=== PATIENT | female | born 2000 | race Caucasian/White ===

== ENCOUNTER 2022-07-28 17:40 | Outpatient (CLI) | payer OTHER, SELFPAY ==
[2022-07-28 17:55] VITALS: BP 118/81; PULSE 106
[2022-07-28 18:01] VITALS: BP 127/84; PULSE 110
[2022-07-28 18:16] VITALS: BP 121/78; PULSE 118
[2022-07-28 18:21] LABS: Basophils Percent Auto 0.2 % (0.2-1.2); Eosinophils Absolute Auto 0.1 K/mm3 (0-0.3); Eosinophils Percent Auto 0.6 % (0-4.4); Hematocrit 32.8 % (37.0-47.0); Hemoglobin 10.9 g/dL (12.0-15.0); Immature Granulocyte Absolute 0.06 K/mm3 (0.00-0.031); Immature Granulocyte Percent A 0.5 % (0-0.5); Lymphocytes Absolute Auto 1.58 K/mm3 (0.9-3.2); Lymphocytes Percent Auto 12.6 % (18.3-44.2); Mean Corpuscular HGB Conc 33.2 g/dl (32-36); Mean Corpuscular Hemoglobin 29.5 pg (26-34); Mean Corpuscular Volume 88.9 fl (80-100); Mean Platelet Volume 10.1 fl (7.4-10.4); Monocytes Absolute Auto 0.8 K/mm3 (0.1-0.6); Monocytes Percent Auto 6.7 % (2.6-8.5); Neutrophils Percent Auto 79.4 % (45.5-73.1); Platelet Count Result 288 k/mm3 (150-375); Red Blood Count 3.69 M/mm3 (4.2-5.4); White Blood Count 12.5 K/mm3 (4.5-10.0)
[2022-07-28 18:31] VITALS: BP 128/71; PULSE 105
[2022-07-28 18:35] LABS: Alanine Aminotransferase 20 U/L (6-35); Albumin Level 3.7 g/dL (3.5-5.1); Alkaline Phosphatase 233 U/L (38-126); Anion Gap 8 mmol/L (8-16); Aspartate Amino Transferase 23 U/L (14-36); Bilirubin,Total 0.3 mg/dL (0.2-1.3); Blood Urea Nitrogen 10 mg/dL (7-17); Calcium 8.7 mg/dL (8.4-10.2); Carbon Dioxide 19 mmol/L (22-30); Chloride 104 mmol/L (98-107); Estimated Glomerular Filt Rate > 60; Glucose 109 mg/dL (65-110); Potassium 3.4 mmol/L (3.4-5.0); Sodium 131 mmol/L (137-145); Uric Acid 4.4 mg/dL (2.5-7.5)
--- NOTE | 2022-07-28 19:10 | PC.NURSE ---
Dr. Augustine Cho called in to check on patient status. Reviewed admission assessment, vs, and lab reports. May discharge home with instructions to return to his office this , 07/31/22, for BP check.
[2022-07-28 19:19] LABS: Appearance Urine Clear (Clear); Bilirubin Urine Negative (Negative); Blood Urine Negative (Negative); Color Urine Yellow (Yellow); Glucose Urine UA Negative (Negative); Ketones Urine Negative (Negative); Leukocyte Esterase Ur Negative LEU/UL (NEGATIVE); Nitrate Urine Negative (Negative); Protein Urine 1+ mg/dL (Negative); Specific Grav Ur >= 1.030 (1.001-1.035); Urobilinogen Urine 0.2 mg/dL (<2.0)
[2022-07-28 19:23] LABS: Bacteria Urine Trace /hpf; Mucus Urine Rare /lpf; Squamous Epithelial Cell Urine Occasional /hpf (Few)
[2022-07-28 19:27] LABS: Add Urine Microscopic? YES
[2022-07-28 19:40] LABS: Creatinine Urine 195.6 mg/dL; Total Protein Urine Random 16 mg/dL; Ur Ttl Prot Creatinine Ratio 0.08 mg/mg (0-0.20)
[2022-07-28 20:13] VITALS: BP 128/71; PULSE 105
== END 2022-07-28 19:30 | disposition home or self-care (01) ==
LOC: ANHOBOP 17:46 → ANHLDR 17:47
PROVIDERS: PCP Pediatrics; Visit Provider Obstetrics & Gynecology
DX: O13.9 Gestational [pregnancy-induced] hypertension without significant proteinuria, unspecified trimester (principal); Z3A.00 Weeks of gestation of pregnancy not specified
CPT/HCPCS: 36415; 59025; 80053; 81001; 82570; 84156; 84550; 85025; 87086; 99199

== ENCOUNTER 2022-08-04 05:57 | Inpatient (IN) | payer OTHER, SELFPAY ==
[2022-08-04] VITALS (167 sets, daily range): BP systolic 76–148; BP diastolic 49–100; PULSE 63–161; TEMP 36.6–36.7; O2SAT 78–100; BMI 29.9
--- NOTE | 2022-08-04 06:49 | LDADM ---
This patient, Sydnie Ortiz, was admitted to Labor/Delivery/Recovery 104 on 08/04/22 at 05:57. Plans for labor, pain management and were discussed with patient. Patient/family oriented to hospital policies and general routines including ID bracelet, bed and alarms, visiting hours, pain management, procedures, bathroom and other care routines, personal items, smoking policy, room service/diet and guest tray routines, security routines, and visiting hours. Patient/Family are encouraged to report perceived risks to care and to ask questions if they do not understand what they are told or what they should do. See OBIX for further documentation.
[2022-08-04 07:08] LABS: Basophils Percent Auto 0.2 % (0.2-1.2); Eosinophils Absolute Auto 0.2 K/mm3 (0-0.3); Eosinophils Percent Auto 1.8 % (0-4.4); Hematocrit 30.5 % (37.0-47.0); Immature Granulocyte Absolute 0.08 K/mm3 (0.00-0.031); Immature Granulocyte Percent A 0.7 % (0-0.5); Lymphocytes Absolute Auto 2.22 K/mm3 (0.9-3.2); Lymphocytes Percent Auto 20.1 % (18.3-44.2); Mean Corpuscular HGB Conc 32.8 g/dl (32-36); Mean Corpuscular Hemoglobin 28.4 pg (26-34); Mean Corpuscular Volume 86.6 fl (80-100); Mean Platelet Volume 9.8 fl (7.4-10.4); Monocytes Absolute Auto 0.9 K/mm3 (0.1-0.6); Monocytes Percent Auto 8.2 % (2.6-8.5); Neutrophils Absolute Auto 7.6 K/mm3 (1.3-6.7); Platelet Count Result 230 k/mm3 (150-375); Red Blood Count 3.52 M/mm3 (4.2-5.4); Red Cell Distribution Width 13.2 % (11.5-14.5)
--- NOTE | 2022-08-04 07:50 | PM.IMHP ---
H&P: HPI History of Present Illness Date/Time: 08/04/22 07:50 Chief Complaint: mildly elevated blood pressure at term Narrative: this is a 22-year-old 1 para 0 whose last menstrual period was 11/04/2021, EDC is 08/11/2022, presents at 39 weeks gestation for induction of labor. Her blood pressures have been elevated the last couple visits. She is spilling 1+ protein. Her PIH labs were negative. She is negative for group B strep PMFSH Family History Family History Other Patient denies significant medical history Social History Social History Smoking status: Current some day smoker Tobacco type: cigarettes Second hand tobacco smoke exposure: No Substance use: never Other substance usage details: smokes daily for nausea Last use: 08/01/2022 Lack of Transportation: No Lack of Food: Never True Current Housing: I Have Housing Concerned About Future Housing: No Difficulty Paying Gas/Electric Bills: No Difficulty Paying for Meds: No Currently Unemployed: YES Education: Grade School Difficulty w/ Childcare or Family Care: No Spiritual care concerns: No Meds Home Medications and Allergies Home Medications Medication Instructions Recorded Confirmed Type prenat.vits,tere,uuo-hmbq-bzubr 1 tablet PO DAILY 08/01/22 08/01/22 History Allergies Allergy/AdvReac Type Severity Reaction Status Date / Time No Known Allergies Allergy Unverified 02/24/18 09:11 Vital Signs Vital Signs - 24 hr 08/04/22 06:59 08/04/22 07:01 08/04/22 07:31 Pulse Rate 91 109 H 106 H Blood Pressure 132/88 136/99 H 134/88 Oxygen Delivery 08/04/22 06:47 Pulse Rate Blood Pressure Oxygen Delivery Room Air Exam Const: General: cooperative, healthy appearing, comfortable and well groomed Nutritional Appearance: average body habitus Orientation/consciousness: oriented to person, oriented to place and oriented to time HENMT: Head: normal to inspection Resp: Effort & Inspection: normal respiratory effort Cardio: Rate: regular rate Rhythm: regular rhythm Heart sounds: S1 normal heart sound present and S2 normal heart sound present GI: Inspection: normal to inspection : External Female Exam: normal external appearance Speculum Exam - Vagina: normal appearance of the vagina Speculum Exam - Cervix: normal appearance of the cervix ( /1. AROM clear. FHTs reassuring) Amniotic Fluid: clear H&P: Results Labs Labs: Short CBC 08/04/22 Range/Units 06:18 WBC 11.0 H (4.5-10.0) K/mm3 Hgb 10.0 L (12.0-15.0) g/dL Hct 30.5 L (37.0-47.0) % Plt Count 230 (150-375) k/mm3 Assessment and Plan Assessment and plan (1) Term : Code(s): Z34.90 - Encounter for supervision of normal , unspecified, unspecified trimester Status: Acute (2) Gestational hypertension: Code(s): O13.9 - Gestational [-induced] hypertension without significant proteinuria, unspecified trimester Status: Acute Plan medical induction of labor. Spontaneous vaginal delivery is expected. She is an epidural candidate. PIH labs were drawn under normal
[2022-08-04 10:12] LABS: Rapid Plasma Reagin Non-Reactive (NonReactive)
--- NOTE | 2022-08-04 11:25 | PM.OBPNLAB ---
Pain Control Date/time seen: 08/04/22 11:25 Pain control: tolerating well Pelvic Exam Dilation (cm): 4 Effacement (%): 100 station: -1 Amniotic membrane status: Leaking Contractions Monitor mode: Internal
[2022-08-04] MEDS: LACTATED RINGERS 1,000 ML 125 ML IV CONT ×2 (12:00→15:50)
--- NOTE | 2022-08-04 13:39 | WPDANESEPP ---
Anes - Eval Pre Procedure Procedure: Labor Epidural Date/Time: 08/04/22 13:39 Surgeon: Augustine Cho Preop Diagnosis: Labor Pain Pre Op Diagnosis: Induction of Labor Patient Data Age: 22 Gender: F Height: 1.55 m Weight: 72 kg Last Vital Signs Temp 36.6 C 08/04/22 13:09 Pulse 86 08/04/22 13:37 BP 126/66 08/04/22 13:37 Pulse Ox 98 08/04/22 13:37 O2 Del Method Room Air 08/04/22 06:47 Allergies Allergy/AdvReac Type Severity Reaction Status Date / Time No Known Allergies Allergy Unverified 02/24/18 09:11 Home Medications Medication Instructions Recorded Confirmed Type prenat.vits,tere,uae-fuem-pvqxe 1 tablet PO DAILY 08/01/22 08/01/22 History Laboratory Tests 08/04/22 08/04/22 08/04/22 06:18 06:18 06:18 WBC 11.0 K/mm3 H K/mm3 (4.5-10.0) RBC 3.52 M/mm3 L M/mm3 (4.2-5.4) Hgb 10.0 g/dL L g/dL (12.0-15.0) Hct 30.5 % L % (37.0-47.0) MCV 86.6 fl fl (80-100) MCH 28.4 pg pg (26-34) MCHC 32.8 g/dl g/dl (32-36) RDW 13.2 % % (11.5-14.5) Plt Count 230 k/mm3 k/mm3 (150-375) MPV 9.8 fl fl (7.4-10.4) Immature Gran % (Auto) 0.7 % H % (0-0.5) Neut % (Auto) 69.0 % % (45.5-73.1) Lymph % (Auto) 20.1 % % (18.3-44.2) [place] % (Auto) 8.2 % % (2.6-8.5) Eos % (Auto) 1.8 % % (0-4.4) Baso % (Auto) 0.2 % % (0.2-1.2) Lymph # (Auto) 2.22 K/mm3 K/mm3 (0.9-3.2) [place] # (Auto) 0.9 K/mm3 H K/mm3 (0.1-0.6) Eos # (Auto) 0.2 K/mm3 K/mm3 (0-0.3) Baso # (Auto) 0.0 K/mm3 K/mm3 (0.0-0.1) Abs Immat Gran (auto) 0.08 K/mm3 H K/mm3 (0.00-0.031) Absolute Neuts (auto) 7.6 K/mm3 H K/mm3 (1.3-6.7) Absolute Nucleated RBC 0.0 K/mm3 K/mm3 (0.0-0.012) Nucleated RBC % 0.0 % % (0.0-0.2) RPR Non-reactive (NonReactive) Blood Type B Positive Antibody Screen Negative : gestational age (RENAY 08/11/22, ) Patient hx anesthesia problems: none Family hx anesthesia problems: none Results Review: All pre-operative results and documents have been reviewed as part of the pre-operative evaluation. [facility] Family History Family History Other Patient denies significant medical history Social History Social History Smoking status: Current some day smoker Tobacco type: cigarettes Second hand tobacco smoke exposure: No Substance use: never Other substance usage details: smokes daily for nausea Last use: 08/01/2022 Lack of Transportation: No Lack of Food: Never True Current Housing: I Have Housing Concerned About Future Housing: No Difficulty Paying Gas/Electric Bills: No Difficulty Paying for Meds: No Currently Unemployed: YES Education: Grade School Difficulty w/ Childcare or Family Care: No Spiritual care concerns: No Exam Day of Procedure 08/04/22 13:39 Patient weight: normal Heart: regular rate and rhythm Lungs: normal air movement Airway: Mallampati scale class II Neurological: alert and oriented
[2022-08-04] MEDS: ONDANSETRON INJ 4 MG/2 ML VIAL IV PUSH (15:43)
--- NOTE | 2022-08-04 17:51 | PM.OBPNLAB ---
Pain Control Date/time seen: 08/04/22 17:51 Pain control: tolerating well and epidural Pelvic Exam Dilation (cm): 7 Effacement (%): 80 station: -2 Amniotic membrane status: Leaking Contractions Monitor mode: Internal
--- NOTE | 2022-08-04 22:22 | PM.OBPRVD ---
OB - Delivery Note Procedure Delivery date: 08/04/22 Events: Elective Induction of Labor and Gestational Hypertension Induction method: AROM Delivery augmentation: Pitocin Delivery monitor: External FHT and Internal Uterine Route of delivery: Episiotomy description: None Laceration Description: None Quantitative Blood Loss (ml): 60 Anesthesia type: Epidural Disposition: Floor Baby Date of : 08/04/22 Weeks of gestation at delivery: 40 presentation: vertex position: Right Occiput Anterior Placenta delivery description: Spontaneous Cord Vessel Description: 3 Vessels, Nuchal Cord, Loose, Reduced and Delayed Cord Clamping score one minute: 9 score five minutes: 9
[2022-08-04] MEDS: OXYTOCIN 30 UNITS/NS 500 ML 30 UNITS/500 ML BAG 125 UNITS IV CONT (22:44)
[2022-08-05] VITALS (12 sets, daily range): BP systolic 108–126; BP diastolic 70–82; PULSE 83–105; RESP 16–18; TEMP 36.6–36.9; O2SAT 96–99
--- NOTE | 2022-08-05 00:33 | OBPPTRN ---
Patient transferred to post room #284 via W/C. Support person present. Oriented to unit, room, information board, rooming in, admission packet and security measures. Patient verbalizes understanding.
[2022-08-05 05:03] LABS: Hematocrit 31.1 % (37.0-47.0); Hemoglobin 10.4 g/dL (12.0-15.0)
--- NOTE | 2022-08-05 07:28 | WPDANLDPN2 ---
Anes-Prog Note L&D Date/Time: 08/05/22 07:28 Comfortable throughout: labor and delivery Neuraxial method: epidural Epidural/Spinal procedure site: clean & non-tender Neuro status: Neuro function grossly intact. Cardiovascular status: normal Respiratory status: normal Airway patency: baseline Mental status: baseline Post-Op hydration status: normal Vital Signs: Last Vital Signs Temp 36.7 C 08/05/22 04:30 Pulse 98 08/05/22 04:30 Resp 16 08/05/22 04:30 BP 112/77 08/05/22 04:30 Pulse Ox 97 08/05/22 00:16 O2 Del Method Room Air 08/05/22 00:40 Pain score (VAS): 07/08 I/O: Intake & Output 08/04/22 08/04/22 08/05/22 15:59 23:59 07:59 Intake Total 1000 550 Output Total 60 813 Balance 1000 -60 -263 Post-procedural complaints: none Patient feedback: Patient satisfied with anesthetic care.
--- NOTE | 2022-08-05 07:40 | PM.DS ---
DS: Admitting Diagnosis Discharge Date 08/06/22 Admitting Diagnosis Term /gestational hypertension DS: Discharge Diagnosis Discharge Diagnosis (1) Gestational hypertension: Code(s): O13.9 - Gestational [-induced] hypertension without significant proteinuria, unspecified trimester Status: Acute (2) Term : Code(s): Z34.90 - Encounter for supervision of normal , unspecified, unspecified trimester Status: Acute DS: Summary Hospital Course Reason for hospitalization: patient was admitted for induction of labor at 39 weeks gestation secondary to mildly elevated blood pressures Hospital Course: the patient underwent successful spontaneous vaginal delivery male infant. Her hospital course unremarkable. She remained afebrile. She was up, eating regular diet, breast-feeding, ambulating, voiding without difficulty, and generally without complaints. Time Spent with Patient Time attestation: Total time spent providing and/or coordinating discharge services: Exam Const: General: cooperative, healthy appearing and comfortable Nutritional Appearance: average body habitus Orientation/consciousness: oriented to person, oriented to place and oriented to time HENMT: Head: normal to inspection Resp: Effort & Inspection: normal respiratory effort GI: Inspection: normal to inspection ( Fundus firm below the umbilicus) DS: Data Data Completed and Pending Labs on day of discharge: Labs from last 24 hours 08/05/22 08/04/22 08/04/22 04:24 06:18 06:18 Hgb 10.4 L Hct 31.1 L RPR Non-reactive Blood Type B Positive Antibody Screen Negative Discharge Plan Discharge Attending physician on discharge: Freddy Lazo Discharging Clinician: Freddy Lazo Patient Disposition: Home, Self-Care Activity: may shower and pelvic rest Diet: heart healthy Wound Care Instructions: follow printed instructions Patient Instructions: Antibiotic Form Stand Alone Forms: General Discharge Information Follow-up/Referrals: Freddy Lazo MD [Physician] - Discharge Medications: Continued #2 Tablet 1 tablet PO DAILY Date of admission: 08/04/22 05:57 Primary Care Provider: UNKNOWN,DOCTOR Admitting Provider: Freddy Lazo Attending physician on admission: Freddy Lazo Condition: Stable
--- NOTE | 2022-08-05 07:42 | PM.OBPNVD ---
OB - PN: Subj Subjective Date/time seen: 08/05/22 07:42 Patient comments: no complaints and pain well controlled baby status: doing well and nursing well OB - PN: Obj Data Labs 08/05/22 04:24 Labs: Laboratory Results - last 24 hr 08/04/22 08/04/22 08/05/22 06:18 06:18 04:24 Hgb 10.4 L Hct 31.1 L RPR Non-reactive Blood Type B Positive Antibody Screen Negative OB - PN A/P Plan day: 1 Plan: routine care Time Spent With Patient Time: Total time spent is greater than 50% in coordination of care (as documented) at patient's floor/unit and/or counseling patient: Time with patient: less than 15 minutes Exam Const: General: cooperative, healthy appearing, comfortable and well groomed Nutritional Appearance: average body habitus Orientation/consciousness: oriented to person, oriented to place and oriented to time Resp: Effort & Inspection: normal respiratory effort GI: Inspection: normal to inspection ( fundus firm below the umbilicus)
[2022-08-05] MEDS: DOCUSATE SODIUM 100 MG CAPSULE PO ×2 (08:18→16:54)
[2022-08-05] MEDS: MULTIVIT/MIN/PREN/FOL AC/IRON TABLET 1 TAB PO (08:18)
--- NOTE | 2022-08-05 14:46 | PC.NURSE ---
[phone] Introductions were made, then consulted with patient to assess needs related to . Mother led the conversation with her?plans to feed?her infant and the?experience so far. Resources provided for inpatient services with name on the white board and using the call light. Mother voiced understanding of information and requested assistance since she had attempted a few times and infant is sleepy. Mother works well with her with encouragement and education. Encouraged understanding of the benefits of skin to skin (demonstrating unwrapping infant and placing upright on her chest), stimulating with massage touch, changing positions to encourage wakefulness, how to watch for early feeding cues, responsive feeding, feeding on demand (aiming for 8-12 times in 24 hours, about every 2-3 hours), milk production, building/maintaining a milk supply, duration of feeding, signs of adequate intake/output and how to record on the feeding sheet. Reviewed positioning and ear, shoulder, hip alignment, supporting the breast to facilitate a deep latch, asymmetrical latch (off-center), leading with the chin with a big, open, wide gape and body close to mother. latched optimally to the right breast in cross cradle position. Education given to mother of how to visualize suck/swallow ratios and listen for drinking at the breast. was able to maintain latch without discomfort to mother. Nipple care reviewed with optimal latch and good positioning. Reminding mother of comfort measures of healing with a warm and wet washcloth to rinse breast, then leave open to air-dry as needed. Reviewed good handwashing when or touching the breast/nipples to prevent infection. Infant stopped swallowing after 10 minutes and fell asleep despite mother stimulating for effectively . was placed skin to skin upright on mother's chest and she demonstrated understanding of using changing positions, massage touch, talking, burping and stimulating for wakefulness. Once feeding cues were observed infant was positioned with cross cradle to the left breast and latched effectively with mother denying pain. Infant had a good suck/swallow ratio and rocking motion. Resources used to facilitate learning were used with the tool. Mother voiced understanding of skin to skin, stimulating with massage touch, responsive feedings, hand expressed colostrum, talking to infant to encourage if it has been 2 -2.5 hours since the start of the last , to call if does not latch, or if there is discomfort with . Resources provided for inpatient assistance with using the call light and asking for assistance with the name on the white board. Mother voiced understanding of information, demonstrated learning and will call if there is a request for assistance. Reported to the primary RN.
[2022-08-06 04:50] VITALS: BP 114/72; PULSE 88
--- NOTE | 2022-08-06 07:41 | PM.OBPNVD ---
OB - PN: Subj Subjective Date/time seen: 08/06/22 07:41 Patient comments: no complaints and pain well controlled baby status: doing well and nursing well OB - PN: Obj Data Labs 08/05/22 04:24 OB - PN A/P Plan day: 2 Plan: routine care, discharge home and follow up 6 weeks Time Spent With Patient Time: Total time spent is greater than 50% in coordination of care (as documented) at patient's floor/unit and/or counseling patient: Time with patient: less than 15 minutes Exam Const: General: cooperative, healthy appearing and comfortable Nutritional Appearance: average body habitus Orientation/consciousness: oriented to person, oriented to place and oriented to time HENMT: Head: normal to inspection Resp: Effort & Inspection: normal respiratory effort Cardio: Rate: regular rate Rhythm: regular rhythm Heart sounds: S1 normal heart sound present and S2 normal heart sound present GI: Inspection: normal to inspection
--- NOTE | 2022-08-06 08:00 | PC.NURSE ---
Patient viewed the discharge video Mother & Baby Care, The First Two Weeks . Patient was given the opportunity and encouraged to ask questions. Patient verbalized understanding of information shared and has been given the mother/baby guide for home reference.
[2022-08-06] MEDS: DOCUSATE SODIUM 100 MG CAPSULE PO (08:06)
[2022-08-06] MEDS: MULTIVIT/MIN/PREN/FOL AC/IRON TABLET 1 TAB PO (08:06)
[2022-08-06] MEDS: TETANUS,DIPHTHERIA,AC PERTUSSIS ADULT (0.5 ML) BOOSTRIX IM (08:06)
[2022-08-06 08:15] VITALS: BP 123/73; PULSE 84; RESP 16; TEMP 36.9; O2SAT 100
[2022-08-07 10:25] VITALS: BP 128/87; PULSE 93; RESP 20; TEMP 37.4; O2SAT 99
== END 2022-08-06 11:00 | disposition home or self-care (01) | DRG 560 ==
LOC: ANHLDR 06:05 → ANHOB2 08-05 00:47
PROVIDERS: Admitting Provider Obstetrics & Gynecology; Visit Provider Obstetrics & Gynecology
DX: O13.4 Gestational [pregnancy-induced] hypertension without significant proteinuria, complicating childbirth (principal); F17.210 Nicotine dependence, cigarettes, uncomplicated; O99.334 Smoking (tobacco) complicating childbirth; O69.81X0 Labor and delivery complicated by cord around neck, without compression, not applicable or unspecified; O76 Abnormality in fetal heart rate and rhythm complicating labor and delivery; Z3A.39 39 weeks gestation of pregnancy; Z37.0 Single live birth
CPT/HCPCS: 36415; 85014; 85018; 85025; 86592; 86850; 86900; 86901; 90715; A9270; J2405; J2590; J2795; J7120

== ENCOUNTER 2024-01-27 06:32 | Inpatient (IN) | payer OTHER, SELFPAY ==
[2024-01-27] VITALS (113 sets, daily range): BP systolic 79–176; BP diastolic 36–139; PULSE 61–180; RESP 16–20; TEMP 36.4–37; O2SAT 91–100; BMI 27.6
--- NOTE | 2024-01-27 06:47 | P.HP_ITS ---
H&P: HPI History of Present Illness Date/Time: 01/27/24 06:47 Chief Complaint: Term Narrative: 23-year-old 2 para 1 at39+ weeks gestation for induction of labor. Cervix is favorable in her has been uncomplicated. [facility] Family History Family History Other Patient denies significant medical history Social History Social History Smoking status: Current some day smoker Tobacco type: cigarettes Second hand tobacco smoke exposure: No Substance use: never Other substance usage details: smokes daily for nausea Last use: 08/01/2022 Lack of Transportation: No Lack of Food: Never True Current Housing: I Have Housing Concerned About Future Housing: No Difficulty Paying Gas/Electric Bills: No Difficulty Paying for Meds: No Currently Unemployed: YES Education: Grade School Difficulty w/ Childcare or Family Care: No Spiritual care concerns: No Meds Home Medications and Allergies Home Medications Medication Instructions Recorded Confirmed Type prenat.vits,tere,fmy-ixgc-iknaa 1 tablet PO DAILY 08/01/22 08/01/22 History Allergies Allergy/AdvReac Type Severity Reaction Status Date / Time No Known Allergies Allergy Unverified 02/24/18 09:11 Exam Const: General: cooperative, healthy appearing and comfortable Nutritional Appearance: average body habitus Orientation/consciousness: oriented to person, oriented to place and oriented to time Resp: Effort & Inspection: normal respiratory effort Cardio: Rate: regular rate Rhythm: regular rhythm Heart sounds: S1 normal heart sound present and S2 normal heart sound present GI: Inspection: normal to inspection (Gravid soft uterus) : External Female Exam: normal external appearance Speculum Exam - Vagina: normal appearance of the vagina Speculum Exam - Cervix: Other cervical findings present ( heart tones are reassuring) Assessment and Plan Assessment and plan (1) Term : Code(s): Z34.90 - Encounter for supervision of normal , unspecified, unspecified trimester Status: Acute Assessment and Plan: Medical induction of labor. Spontaneous vaginal delivery is expected. She has an epidural candidate
[2024-01-27 07:19] LABS: Basophils Percent Auto 0.1 % (0.2-1.2); Eosinophils Absolute Auto 0.1 K/mm3 (0-0.3); Eosinophils Percent Auto 1.4 % (0-4.4); Hematocrit 31.4 % (37.0-47.0); Hemoglobin 10.4 g/dL (12.0-15.0); Immature Granulocyte Absolute 0.03 K/mm3 (0.00-0.031); Immature Granulocyte Percent A 0.4 % (0-0.5); Lymphocytes Absolute Auto 1.63 K/mm3 (0.9-3.2); Lymphocytes Percent Auto 23.3 % (18.3-44.2); Mean Corpuscular HGB Conc 33.1 g/dl (32-36); Mean Corpuscular Hemoglobin 29.2 pg (26-34); Mean Corpuscular Volume 88.2 fl (80-100); Mean Platelet Volume 9.9 fl (7.4-10.4); Monocytes Absolute Auto 0.7 K/mm3 (0.1-0.6); Monocytes Percent Auto 9.7 % (2.6-8.5); Neutrophils Absolute Auto 4.6 K/mm3 (1.3-6.7); Neutrophils Percent Auto 65.1 % (45.5-73.1); Platelet Count Result 244 k/mm3 (150-375); Red Blood Count 3.56 M/mm3 (4.2-5.4)
[2024-01-27] MEDS: LACTATED RINGERS 1,000 ML 125 ML IV CONT ×2 (07:47→10:52)
[2024-01-27] MEDS: OXYTOCIN 30 UNITS/NS 500 ML 30 UNITS/500 ML BAG IV CONT (07:48)
[2024-01-27 07:55] LABS: Rapid Plasma Reagin Non-Reactive (NonReactive)
[2024-01-27 08:11] LABS: HIV 1/2 Ab P24 Ag Result Negative (Negative)
--- NOTE | 2024-01-27 10:36 | WPDANESEPP ---
Anes - Eval Pre Procedure Procedure: Labor epidural Date/Time: 01/27/24 10:36 Surgeon: Augustine Cho Preop Diagnosis: Pain during labor Pre Op Diagnosis: IOL Patient Data Age: 23 Gender: F Height: 1.55 m Weight: 66.5 kg Last Vital Signs Temp 36.8 C 01/27/24 08:58 Pulse 84 01/27/24 10:30 Resp 16 01/27/24 08:58 BP 131/90 01/27/24 10:30 O2 Del Method Room Air 01/27/24 08:00 Allergies Allergy/AdvReac Type Severity Reaction Status Date / Time No Known Allergies Allergy Verified 01/27/24 07:20 Home Medications Medication Instructions Recorded Confirmed Type prenat.vits,tere,gtv-uqiz-vwsln 1 tablet PO DAILY 08/01/22 01/27/24 History omeprazole 20 mg tablet,delayed 20 mg PO DAILY 01/27/24 01/27/24 History release Laboratory Tests 01/27/24 07:01 WBC 7.0 K/mm3 (4.5-10.0) RBC 3.56 L M/mm3 (4.2-5.4) Hgb 10.4 L g/dL (12.0-15.0) Hct 31.4 L % (37.0-47.0) MCV 88.2 fl (80-100) MCH 29.2 pg (26-34) MCHC 33.1 g/dl (32-36) RDW 14.0 % (11.5-14.5) Plt Count 244 k/mm3 (150-375) MPV 9.9 fl (7.4-10.4) Immature Gran % (Auto) 0.4 % (0-0.5) Neut % (Auto) 65.1 % (45.5-73.1) Lymph % (Auto) 23.3 % (18.3-44.2) [place] % (Auto) 9.7 H % (2.6-8.5) Eos % (Auto) 1.4 % (0-4.4) Baso % (Auto) 0.1 L % (0.2-1.2) Lymph # (Auto) 1.63 K/mm3 (0.9-3.2) [place] # (Auto) 0.7 H K/mm3 (0.1-0.6) Eos # (Auto) 0.1 K/mm3 (0-0.3) Baso # (Auto) 0.0 K/mm3 (0.0-0.1) Abs Immat Gran (auto) 0.03 K/mm3 (0.00-0.031) Absolute Neuts (auto) 4.6 K/mm3 (1.3-6.7) Absolute Nucleated RBC 0.000 K/mm3 (0.0-0.012) Nucleated RBC % 0.0 % (0.0-0.2) RPR Non-reactive (NonReactive) HIV 1&2 Ab/P24 Ag 4thGn Negative (Negative) Blood Type B Positive Antibody Screen Negative Patient hx anesthesia problems: none Family hx anesthesia problems: none Results Review: All pre-operative results and documents have been reviewed as part of the pre-operative evaluation. [facility] Family History Family History Other Patient denies significant medical history Social History Social History Years smoked: 2 Smoking status: Former smoker Tobacco type: cigarettes Second hand tobacco smoke exposure: Yes Substance use: current Other substance usage details: smokes daily for nausea Last use: 01/23/24 Do You Feel Safe in your Home?: Yes Lack of Transportation: No Lack of Food: Never True Current Housing: I Have Housing Concerned About Future Housing: No Difficulty Paying Gas/Electric Bills: No Difficulty Paying for Meds: No Currently Unemployed: No Education: Grade School Difficulty w/ Childcare or Family Care: No Spiritual care concerns: No Exam Day of Procedure 01/27/24 10:36 Patient weight: overweight Heart: regular rate and rhythm Lungs: clear to auscultation Airway: Mallampati scale Neurological: alert and oriented
--- NOTE | 2024-01-27 11:43 | PM.OBPNLAB ---
Pain Control Date/time seen: 01/27/24 11:43 Pain control: tolerating well and epidural Pelvic Exam Dilation (cm): 5 Effacement (%): 90 station: -1 Amniotic membrane status: Leaking
--- NOTE | 2024-01-27 11:50 | PM.OBPNLAB ---
Pain Control Date/time seen: 01/27/24 11:50 Pain control: tolerating well and epidural Pelvic Exam Dilation (cm): 10 Effacement (%): 100 station: 0 Amniotic membrane status: Leaking
--- NOTE | 2024-01-27 12:24 | PM.OBPRVD ---
OB - Vaginal Delivery Note Procedure Delivery date: 01/27/24 Events: Elective Induction of Labor Induction method: AROM Delivery monitor: External FHT and External Uterine Route of delivery: Episiotomy description: None Laceration Description: None Specimen: No Quantitative Blood Loss (ml): 61 Anesthesia type: Epidural Disposition: Floor Complications: No immediate complications Narrative: Patient was admitted for induction of labor early a.m. 01/27/2024. Artificial rupture membranes performed. She received remarkable for stage of labor had epidural anesthesia. She was complete she pushed delivered head spontaneously in the FABIOLA position. Anterior posterior shoulder delivered spontaneously. Cord clamped to cut and passed off the table the next cry. Placenta spontaneously. Twenty visualized units of Pitocin placed IV to help firm the uterus. Blood loss estimated 5cc after delivery of placenta. All sponge, needle, instrument counts were correct. There were no immediate complications Baby Date of : 01/27/24 Time of : 12:16 Gestational Age by Date: 39 gender: Male presentation: vertex position: Left Occiput Anterior Placenta delivery description: Spontaneous Cord Vessel Description: 3 Vessels score one minute: 9 score five minutes: 9
--- NOTE | 2024-01-27 12:26 | PM.DS ---
DS: Admitting Diagnosis Discharge Date 01/28/24 Admitting Diagnosis term DS: Discharge Diagnosis Discharge Diagnosis (1) Term : Code(s): Z34.90 - Encounter for supervision of normal , unspecified, unspecified trimester Status: Acute DS: Summary Hospital Course Reason for hospitalization: patient was admitted for induction of labor at 39 and half weeks gestation on 01/27/2024. She underwent spontaneous vaginal delivery Hospital Course: patient's hospital course unremarkable. She remained afebrile. She was up, voiding without difficulty go bleeding read diet, ambulating, and generally without complaints. Time Spent with Patient Time attestation: Total time spent providing and/or coordinating discharge services: Exam Const: General: cooperative, healthy appearing and comfortable Nutritional Appearance: average body habitus Orientation/consciousness: oriented to person, oriented to place and oriented to time HENMT: Head: normal to inspection Resp: Effort & Inspection: normal respiratory effort Cardio: Rate: regular rate Rhythm: regular rhythm Heart sounds: S1 normal heart sound present and S2 normal heart sound present GI: Inspection: normal to inspection ( Fundus firm below the umbilicus) DS: Data Data Completed and Pending Labs on day of discharge: Labs from last 24 hours 01/27/24 07:01 WBC 7.0 RBC 3.56 L Hgb 10.4 L Hct 31.4 L MCV 88.2 MCH 29.2 MCHC 33.1 RDW 14.0 Plt Count 244 MPV 9.9 Immature Gran % (Auto) 0.4 Neut % (Auto) 65.1 Lymph % (Auto) 23.3 [place] % (Auto) 9.7 H Eos % (Auto) 1.4 Baso % (Auto) 0.1 L Lymph # (Auto) 1.63 [place] # (Auto) 0.7 H Eos # (Auto) 0.1 Baso # (Auto) 0.0 Abs Immat Gran (auto) 0.03 Absolute Neuts (auto) 4.6 Absolute Nucleated RBC 0.000 Nucleated RBC % 0.0 RPR Non-reactive HIV 1&2 Ab/P24 Ag 4thGn Negative Blood Type B Positive Antibody Screen Negative Discharge Plan Discharge Attending physician on discharge: Freddy Lazo Discharging Clinician: Freddy Lazo Patient Disposition: Home, Self-Care Activity: may shower and pelvic rest Diet: heart healthy Wound Care Instructions: follow printed instructions Patient Instructions: Antibiotic Form Stand Alone Forms: General Discharge Information Follow-up/Referrals: Freddy Lazo MD [Physician] - Discharge Medications: Continued prenat.vits,tere,aze-yugl-cyriu Tablet 1 tablet PO DAILY omeprazole 20 mg Tablet,Delayed Release (Dr/Ec) 20 mg PO DAILY Date of admission: 01/27/24 06:32 Primary Care Provider: PHYSICIAN,READING RECOVERY TEACHER Admitting Provider: Freddy Lazo Attending physician on admission: Freddy Lazo Condition: Stable
[2024-01-27] MEDS: OXYTOCIN 30 UNITS/NS 500 ML 30 UNITS/500 ML BAG 125 UNITS IV CONT (13:02)
[2024-01-27] MEDS: WITCH HAZEL 40 PADS 1 PAD TOPICAL (14:25)
[2024-01-27] MEDS: BENZOCAINE 20% AER SPR (*SP) 56 GM CAN 1 SPRAY TOPICAL (14:25)
--- NOTE | 2024-01-27 14:55 | OBPPTRN ---
Patient transferred to post room #283 via wheelchair. Support person present. Oriented to unit, room, information board, rooming in, admission packet and security measures. Patient verbalizes understanding.
[2024-01-27] MEDS: POLYSACCHARIDE IRON COMPLEX 150 MG CAPSULE PO (16:50)
--- NOTE | 2024-01-27 17:50 | PC.NURSE ---
Called to patient room for assistance. Mother has infant swaddled so we unwrapped him and woke him up. He was alert and rooting. Mother attempted to latch him on the left breast in cradle and cross cradle hold. She handles baby will and knows how to hold her breast for a deep latch. Baby would hold the nipple in his mouth and lick but would not latch or suckle. After 10 minutes of trying, suggested mom try skin to skin and try again in a half hour. Mother agrees and says she will call for assistance as needed. Reported to Primary RN.
[2024-01-28 00:33] VITALS: BP 114/78; PULSE 60; RESP 20; TEMP 36.8; O2SAT 97
--- NOTE | 2024-01-28 04:47 | PM.OBPNVD ---
OB - PN: Subj Subjective Date/time seen: 01/28/24 04:47 Patient comments: no complaints and pain well controlled baby status: doing well OB - PN: Obj Data Labs 01/27/24 07:01 Labs: Laboratory Results - last 24 hr 01/27/24 07:01 WBC 7.0 RBC 3.56 L Hgb 10.4 L Hct 31.4 L MCV 88.2 MCH 29.2 MCHC 33.1 RDW 14.0 Plt Count 244 MPV 9.9 Immature Gran % (Auto) 0.4 Neut % (Auto) 65.1 Lymph % (Auto) 23.3 [place] % (Auto) 9.7 H Eos % (Auto) 1.4 Baso % (Auto) 0.1 L Lymph # (Auto) 1.63 [place] # (Auto) 0.7 H Eos # (Auto) 0.1 Baso # (Auto) 0.0 Abs Immat Gran (auto) 0.03 Absolute Neuts (auto) 4.6 Absolute Nucleated RBC 0.000 Nucleated RBC % 0.0 RPR Non-reactive HIV 1&2 Ab/P24 Ag 4thGn Negative Blood Type B Positive Antibody Screen Negative OB - PN A/P Plan day: 1 Plan: routine care, discharge home and follow up 6 weeks Time Spent With Patient Time: Total time spent is greater than 50% in coordination of care (as documented) at patient's floor/unit and/or counseling patient: Time with patient: less than 15 minutes Exam Const: General: cooperative, healthy appearing and comfortable Nutritional Appearance: average body habitus Orientation/consciousness: oriented to person, oriented to place and oriented to time Resp: Effort & Inspection: normal respiratory effort Cardio: Rate: regular rate Rhythm: regular rhythm Heart sounds: S1 normal heart sound present and S2 normal heart sound present GI: Inspection: normal to inspection
[2024-01-28 05:27] LABS: Hematocrit 29.5 % (37.0-47.0); Hemoglobin 9.6 g/dL (12.0-15.0)
[2024-01-28 07:45] VITALS: BP 115/77; PULSE 79; RESP 18; TEMP 36.7; O2SAT 99
--- NOTE | 2024-01-28 08:20 | PC.NURSE ---
Patient called out for a latch check. fed for 15 minutes but was no longer latched when RN entered room. Mother says baby had a good latch and she was comfortable with how the feeding went. She was encouraged to call again for a latch check or with any further questions or concerns. Mother agrees.
[2024-01-28] MEDS: POLYSACCHARIDE IRON COMPLEX 150 MG CAPSULE PO ×2 (08:52→17:56)
[2024-01-28] MEDS: MULTIVIT/MIN/PREN/FOL AC/IRON TABLET 1 TAB PO (08:52)
[2024-01-28 12:11] VITALS: BP 120/77; PULSE 79; RESP 16; TEMP 36.6; O2SAT 99
[2024-01-28 18:49] VITALS: BP 116/90; PULSE 85; RESP 18; TEMP 36.5; O2SAT 100
--- NOTE | 2024-01-29 05:32 | PM.OBPNVD ---
OB - PN: Subj Subjective Date/time seen: 01/29/24 05:32 Patient comments: no complaints and pain well controlled baby status: doing well OB - PN: Obj Data Labs 01/28/24 03:38 OB - PN A/P Plan day: 2 Plan: routine care, discharge home and follow up 6 weeks Time Spent With Patient Time: Total time spent is greater than 50% in coordination of care (as documented) at patient's floor/unit and/or counseling patient: Time with patient: less than 15 minutes Exam Const: General: cooperative, healthy appearing and comfortable Nutritional Appearance: average body habitus Orientation/consciousness: oriented to person, oriented to place and oriented to time Resp: Effort & Inspection: normal respiratory effort Cardio: Rate: regular rate Rhythm: regular rhythm Heart sounds: S1 normal heart sound present and S2 normal heart sound present GI: Inspection: normal to inspection
[2024-01-29 08:05] VITALS: BP 99/76; PULSE 69; RESP 16; TEMP 37.4; O2SAT 100
[2024-01-29] MEDS: POLYSACCHARIDE IRON COMPLEX 150 MG CAPSULE PO (08:33)
[2024-01-29] MEDS: MULTIVIT/MIN/PREN/FOL AC/IRON TABLET 1 TAB PO (08:33)
--- NOTE | 2024-01-29 10:26 | PC.NURSE ---
Consulted with mother concerning needs and she shared her ability to independently latch infant optimally without pain. Mother is feeding appropriately for growth of and understands stimulating to eat if needed. Infant has had appropriate feedings in the last 24 hours meets the outcomes for weight, output, blood sugar and jaundice at this time. Reinforced understanding of milk production, transition of milk, signs of adequate intake, transition of stool, prevention/relief of engorgement, plugged ducts, mastitis, responsive watching for feeding cues, the different methods of stimulating to breastfeed 1-3 hours after the start of the last feeding, community resources, and when to call a provider using the resource of the feeding sheet along with the mom and baby guide. Mother voiced understanding of the information shared, is confident to continue effectively her infant at home, when to call for assistance, denies any additional assistance or education at this time. Reported to the Primary RN.
[2024-01-30 14:02] VITALS: BP 115/71; PULSE 100; RESP 18; TEMP 36.3; O2SAT 100
== END 2024-01-29 13:35 | disposition home or self-care (01) | DRG 560 ==
LOC: ANHLDR 12:28 → ANHOB2 15:01
PROVIDERS: Admitting Provider Obstetrics & Gynecology; Visit Provider Obstetrics & Gynecology
DX: O62.3 Precipitate labor (principal); Z37.0 Single live birth; Z3A.39 39 weeks gestation of pregnancy
CPT/HCPCS: 36415; 85014; 85018; 85025; 86592; 86703; 86850; 86900; 86901; A9270; G0432; J2590; J2795; J7120